=== PATIENT | male | born 1970 | race Caucasian/White ===

== ENCOUNTER → 2021-03-14 | Outpatient (CLI) | payer OTHER ==
[~2021-03-14] MED LIST: ADMELOG100 UNIT/1 SC; ALDACTONE 25MG25 MG PO; ALPRAZOLAM0.5 MG PO; ALPRAZOLAM2 MG PO; AMIODARONE HCL200 MG PO; ASPIRIN EC81 MG PO; ATORVASTATIN CA20 MG PO; BASAGLAR K100 UNIT/1 SC; BUMETANIDE2 MG PO; CLARITIN10 MG PO; CLONAZEPAM2 MG PO; CLOPIDOGREL75 MG PO; CYCLOBENZAPRINE5 MG PO; DULERA 200 MCG8.8 GM INH; EFFEXOR XR 75 M75 MG PO; ELIQUIS 5 MG TAB5 MG PO; ENTRESTO 24 MG1 EACH PO; GABAPENTIN600 MG PO; HUMULIN 70100 UNIT/1 SQ; ISOSORBIDE MONO60 MG PO; K-DUR TAB 10 M10 MEQ PO; LANOXIN TAB0.125 MG PO; LASIX40 MG PO; LIORESAL TAB 1010 MG PO; LIPITOR40 MG PO; LISINOPRIL5 MG PO; LOPRESSOR 25 MG25 MG PO; LORTAB 7.5-3251 EACH PO; MINIPRESS CAP 11 MG PO; MOBIC15 MG PO; OMEPRAZOLE20 M1 PO; OXYCODONE HCL10 MG PO; PROTONIX 20 MG20 MG PO; PROVENTIL HFA6.7 GM INH; RANITIDINE HCL150 M1 PO; SIMVASTATIN20 MG PO; TRAZODONE HCL50 MG PO; VOLTAREN EC 7575 MG PO; ZESTRIL2.5 MG PO; ZYLOPRIM 100 M100 MG PO
[2021-03-14 17:24] LABS: BUN/CREATININE RATIO 20 (0-10)
[2021-03-16 11:11] LABS: CREATININE, URINE 146.9 mg/dL (Not Estab.)
== END ==
LOC: EXRD 15:22 → EDBD 15:22
PROVIDERS: Family Medicine
DX: R05 Cough (principal); E11.65 Type 2 diabetes mellitus with hyperglycemia; E53.8 Deficiency of other specified B group vitamins; M10.9 Gout, unspecified; E78.2 Mixed hyperlipidemia; Z51.81 Encounter for therapeutic drug level monitoring; Z79.899 Other long term (current) drug therapy; Z79.4 Long term (current) use of insulin
CPT/HCPCS: 71046; 80053; 80061; 80162; 82043; 82570; 82607; 84550

== ENCOUNTER → 2021-04-18 | Outpatient (CLI) | payer OTHER | LOC: HEART 5 01-04 10:00 → EDBD 04-05 11:30 → HEART 5 04-05 11:30 | DX: I50.22 Chronic systolic (congestive) heart failure (principal); I08.1 Rheumatic disorders of both mitral and tricuspid valves | CPT/HCPCS: 93306 ==

== ENCOUNTER → 2021-11-15 | Outpatient (CLI) | payer OTHER | LOC: HEART 5 15:44 | DX: R06.02 Shortness of breath (principal) | CPT/HCPCS: 94060; 94729 ==

== ENCOUNTER 2022-02-15 14:35 | Inpatient (IN) | payer OTHER ==
[~2022-02-15] VITALS: Ht 185.4 cm; Wt 104.3 kg
[2022-02-15 15:10] LABS: HEMOGLOBIN 12.7 gm/dl (14.0-17.5); RED BLOOD COUNT 4.68 M/UL (4.20-5.50)
[2022-02-15 15:42] LABS: WHITE BLOOD COUNT 31.5 K/UL (4.5-11.0)
[2022-02-15 15:44] LABS: BUN/CREATININE RATIO 15 (0-10)
[2022-02-15] MEDS ORDERED: GABAPENTIN800 MG PO (17:17)
[2022-02-15] MEDS ORDERED: HYDROXYZINE HCL25 MG PO (18:27)
[2022-02-15] MEDS ORDERED: VITAMIN B-121000 MC3 PO (18:28)
[2022-02-15] MEDS ORDERED: PERCOCET 10-321 EACH PO (18:28)
[2022-02-15] MEDS ORDERED: FARXIGA10 MG PO (18:29)
[2022-02-15] MEDS ORDERED: CYCLOBENZAPRINE10 MG PO (18:29)
[2022-02-15] MEDS ORDERED: VOLTAREN EC 7575 MG PO (18:30)
[2022-02-15] MEDS ORDERED: CYMBALTA 30 MG30 MG PO (18:30)
[2022-02-15] MEDS ORDERED: BREO ELLIPTA 11 EACH INH (18:31)
[2022-02-15] MEDS ORDERED: METFORMIN HCL1000 MG PO (18:32)
[2022-02-15] MEDS ORDERED: TOPROL XL25 MG PO (18:32)
[2022-02-15] MEDS ORDERED: POTASSIUM CHLO10 ME2 PO (18:33)
[2022-02-15] MEDS ORDERED: PROTONIX20 MG PO (18:33)
[2022-02-15] MEDS ORDERED: ENTRESTO 49 MG1 EACH PO (18:48)
[2022-02-15] MEDS ORDERED: TOPAMAX100 MG PO (18:48)
[2022-02-15] MEDS ORDERED: PROVENTIL HFA6.7 GM INH (18:54)
[2022-02-15] MEDS ORDERED: HUMALOG100 UNIT/3 SC (18:55)
[2022-02-15] MEDS ORDERED: LANTUS SOL100 UNIT/1 SC (18:55)
[2022-02-15] MEDS ORDERED: LOVAZA1 GM PO (18:57)
[2022-02-15] MEDS ORDERED: RANEXA500 MG PO (18:58)
[2022-02-15] MEDS ORDERED: CRESTOR40 MG PO (18:58)
--- NOTE | 2022-02-16 00:17 | NUR ---
02/15/222113 VF ARREST SEE CODE SHEET
[2022-02-16 04:59] LABS: HEMOGLOBIN 10.1 gm/dl (14.0-17.5); RED BLOOD COUNT 3.8 M/UL (4.20-5.50); WHITE BLOOD COUNT 22.9 K/UL (4.5-11.0)
[2022-02-16 05:06] LABS: CANDIDA ALBICANS Not Detected (Negative); CANDIDA KRUSEI Not Detected (Negative); CANDIDA TROPICALIS Not Detected (Negative); ESCHERICHIA COLI Not Detected (Negative); HAEMOPHILUS INFLUENZAE Not Detected (Negative); KLEBSIELLA OXYTOCA Not Detected (Negative); KLEBSIELLA PNEUMONIAE Not Detected (Negative); KPC-CARBAPENEM-RESISTANCE GENE Not Detected (Negative); PROTEUS Not Detected (Negative); PSEUDOMONAS AERUGINOSA Not Detected (Negative); SERRATIA MARCESANS Not Detected (Negative); STAPHYLOCOCCUS Not Detected (Negative); STAPHYLOCOCCUS AUREUS Not Detected (Negative); STREP PYOGENES (GROUP A) Not Detected (Negative); vanA/B (VANCOMYCIN RESIST GENE Not Detected (Negative)
[2022-02-16 05:09] LABS: STREPTOCOCCUS DETECTED (Negative)
[2022-02-16 05:10] LABS: STREP AGALACTIAE (GROUP B) DETECTED (Negative)
--- NOTE | 2022-02-16 10:39 | NUR ---
TRANSPORTERS HERE TO PREPARE PATIENT FOR TRANSFER. HANDOFF REPORT GIVEN TO NATALEE PHAM FOR [employer] [facility]. ALL APPROPRIATE DOCUMENTS HAVE BEEN GIVEN TO THE TRANSPORT TEAM. PATIENT IS IN CRITICAL CONDITION AND FAMILY HAS BEEN NOTIFIED THAT THE PATIENT IS CURRENTLY BEING TRANSFERED TO ANOTHER FACILITY.
== END 2022-02-16 11:15 | disposition short-term general hospital (02) | DRG 871 ==
LOC: ER1 14:35 → CDU 16:46 → CCU 20:33
PROVIDERS: Internal Medicine Pulmonary Disease; Preventive Medicine Occupational Medicine; ADMIT Internal Medicine
PROC: 0BH17EZ Insertion of Endotracheal Airway into Trachea, Via Natural or Artificial Opening (ICD-10-PCS; principal; 2022-02-15)
PROC: 5A1935Z Respiratory Ventilation, Less than 24 Consecutive Hours (ICD-10-PCS; 2022-02-15)
PROC: 05HM33Z Insertion of Infusion Device into Right Internal Jugular Vein, Percutaneous Approach (ICD-10-PCS; 2022-02-15)
PROC: B543ZZA Ultrasonography of Right Jugular Veins, Guidance (ICD-10-PCS; 2022-02-15)
PROC: 03HY32Z Insertion of Monitoring Device into Upper Artery, Percutaneous Approach (ICD-10-PCS; 2022-02-15)
PROC: 4A133B1 Monitoring of Arterial Pressure, Peripheral, Percutaneous Approach (ICD-10-PCS; 2022-02-15)
PROC: 4A133J1 Monitoring of Arterial Pulse, Peripheral, Percutaneous Approach (ICD-10-PCS; 2022-02-15)
PROC: 3E043XZ Introduction of Vasopressor into Central Vein, Percutaneous Approach (ICD-10-PCS; 2022-02-15)
PROC: 3E03329 Introduction of Other Anti-infective into Peripheral Vein, Percutaneous Approach (ICD-10-PCS; 2022-02-15)
DX: A41.9 Sepsis, unspecified organism (principal); R65.21 Severe sepsis with septic shock; N17.0 Acute kidney failure with tubular necrosis; I46.8 Cardiac arrest due to other underlying condition; G93.41 Metabolic encephalopathy; K85.90 Acute pancreatitis without necrosis or infection, unspecified; Z20.822 Contact with and (suspected) exposure to COVID-19; R57.0 Cardiogenic shock; J96.21 Acute and chronic respiratory failure with hypoxia; J96.22 Acute and chronic respiratory failure with hypercapnia; Z66 Do not resuscitate; I21.4 Non-ST elevation (NSTEMI) myocardial infarction; I49.01 Ventricular fibrillation; I50.22 Chronic systolic (congestive) heart failure; N30.00 Acute cystitis without hematuria; I47.2 Ventricular tachycardia; J44.9 Chronic obstructive pulmonary disease, unspecified; I48.0 Paroxysmal atrial fibrillation; I25.10 Atherosclerotic heart disease of native coronary artery without angina pectoris; E11.9 Type 2 diabetes mellitus without complications; F17.200 Nicotine dependence, unspecified, uncomplicated; J45.909 Unspecified asthma, uncomplicated; E87.5 Hyperkalemia; J98.2 Interstitial emphysema; I25.5 Ischemic cardiomyopathy; R34 Anuria and oliguria; E11.621 Type 2 diabetes mellitus with foot ulcer; L97.529 Non-pressure chronic ulcer of other part of left foot with unspecified severity; E86.0 Dehydration; Z95.1 Presence of aortocoronary bypass graft; Z95.2 Presence of prosthetic heart valve; I25.2 Old myocardial infarction; Z88.0 Allergy status to penicillin; Z88.1 Allergy status to other antibiotic agents; Z82.49 Family history of ischemic heart disease and other diseases of the circulatory system; Z99.81 Dependence on supplemental oxygen; Z86.718 Personal history of other venous thrombosis and embolism; Z86.73 Personal history of transient ischemic attack (TIA), and cerebral infarction without residual deficits; Z95.5 Presence of coronary angioplasty implant and graft
CPT/HCPCS: 0240U; 31500; 36415; 36600; 51702; 70450; 71045; 71250; 80048; 80053; 80202; 80307; 81001; 82009; 82140; 82550; 82553; 82803; 82962; 83036; 83605; 83690; 83880; 84484; 85025; 85610; 85652; 85730; 86140; 86850; 86900; 86901; 87040; 87070; 87077; 87086; 87150; 87205; 93005; 94002; 94760; 96374; 96375; 99285; C9113; G0480; J0610; J1160; J1250; J1644; J1720; J2250; J2310; J2370; J2704; J3370; J7030; J7040; J7070